=== PATIENT | female | born 1985 | race African-American/Black ===

== ENCOUNTER 2019-12-09 15:57 | Outpatient (CLI) | payer OTHER, SELFPAY ==
[2019-12-09] VITALS (8 sets, daily range): BP systolic 121–130; BP diastolic 75–82; PULSE 84–95
--- NOTE | ~2019-12-09 | US_ITS ---
EXAMINATION: US OB BPP wo non-stress DATE: 12/10/2019 09:00 INDICATION: -induced hypertension, third trimester TECHNIQUE: Real-time pelvic ultrasound was performed. The interpreting radiologist was not present fo r the study. COMPARISON: None. FINDINGS: There is a single living fetus in vertex presentation. The placenta is anterior. heart rate is 139 beats per minute (bpm). Biophysical profile performed by the technologist: breathing (30 sec sustained breathing in 30 minutes): 2 out of 2 movement (3 gross body movements in 30 minutes): 2 out of 2 tone (one episode of lrnharh-fdxvplhdb-vvzuchi limb movement): 2 out of 2 Amniotic fluid pocket (2 cm): 2 out of 2 Total score: 8 out of 8 IMPRESSION: 1. Single living fetus in vertex presentation. 2. Biophysical profile 8 out of 8. Reviewed, dictated and finalized at location A.
[2019-12-09 17:21] LABS: Basophils Percent Auto 0.3 % (0.2-1.2); Eosinophils Absolute Auto 0.1 K/mm3 (0-0.3); Eosinophils Percent Auto 0.7 % (0-4.4); Hematocrit 29.1 % (37.0-47.0); Immature Granulocyte Absolute 0.23 K/mm3 (0.00-0.031); Immature Granulocyte Percent A 3.1 % (0-0.5); Lymphocytes Absolute Auto 1.37 K/mm3 (0.9-3.2); Lymphocytes Percent Auto 18.6 % (18.3-44.2); Mean Corpuscular HGB Conc 30.9 g/dl (32-36); Mean Corpuscular Hemoglobin 24.1 pg (26-34); Mean Platelet Volume 10.8 fl (7.4-10.4); Monocytes Absolute Auto 0.8 K/mm3 (0.1-0.6); Monocytes Percent Auto 10.6 % (2.6-8.5); Neutrophils Absolute Auto 4.9 K/mm3 (1.3-6.7); Neutrophils Percent Auto 66.7 % (45.5-73.1); Platelet Count Result 181 k/mm3 (150-375); Red Blood Count 3.73 M/mm3 (4.2-5.4); White Blood Count 7.4 K/mm3 (4.5-10.0)
[2019-12-09 17:26] LABS: Add Urine Microscopic? YES; Appearance Urine Cloudy (Clear); Bacteria Urine 2+ /hpf; Bilirubin Urine 1+ (Negative); Blood Urine Negative (Negative); Color Urine Amber (Yellow); Glucose Urine UA 2+ mg/dL (Negative); Ketones Urine 1+ mg/dL (Negative); Leukocyte Esterase Ur Negative LEU/UL (NEGATIVE); Mucus Urine Heavy /lpf; Nitrate Urine Negative (Negative); Protein Urine 2+ mg/dL (Negative); Squamous Epithelial Cell Urine Many /hpf (Few)
[2019-12-09 17:29] LABS: Specific Grav Ur 1.033 (1.001-1.035)
[2019-12-09 17:33] LABS: Alanine Aminotransferase 8 U/L (4-35); Albumin Level 3.3 g/dL (3.5-5.1); Alkaline Phosphatase 139 U/L (38-126); Aspartate Amino Transferase 17 U/L (14-36); Bilirubin,Total 0.5 mg/dL (0.2-1.3); Blood Urea Nitrogen 4 mg/dL (7-17); Calcium 8.8 mg/dL (8.4-10.2); Carbon Dioxide 20 mmol/L (22-30); Chloride 108 mmol/L (98-107); Estimated Glomerular Filt Rate > 60; Glucose 105 mg/dL (65-105); Potassium 3.4 mmol/L (3.4-5.0); Sodium 133 mmol/L (137-145); Uric Acid 3.7 mg/dL (2.5-7.5)
[2019-12-09 17:58] LABS: Creatinine Urine 330.1 mg/dL; Total Protein Urine Random 12 mg/dL
--- NOTE | 2019-12-09 19:12 | PC.NURSE ---
Called Dr. Perdomo @[phone]- Informed of BPP 04/18, PIH labs reviewed, BP's reviewed. pt to continue to take Macrobid as previously prescribed. pt to increase fluid intake. pt to f/u in office at regularly scheduled appt.
== END 2019-12-09 19:09 | disposition home or self-care (01) ==
LOC: ANHOBOP 16:29 → ANHOBPP 16:33
PROVIDERS: Visit Provider Obstetrics & Gynecology
DX: O13.9 Gestational [pregnancy-induced] hypertension without significant proteinuria, unspecified trimester (principal)
CPT/HCPCS: 36415; 59025; 76819; 80053; 81001; 82570; 84156; 84550; 85025; 87086; 99199

== ENCOUNTER 2019-12-24 10:09 | Outpatient (RCR) | payer OTHER, SELFPAY ==
[2019-12-18 11:15] VITALS: BP 120/75; PULSE 89
--- NOTE | ~2019-12-24 | US_ITS ---
EXAMINATION: US OB BPP wo non-stress DATE: 12/18/2019 11:15 INDICATION: Hypertension. Third trimester. TECHNIQUE: Real-time pelvic ultrasound was performed. COMPARISON: Ultrasound 12/09/2019 FINDINGS: There is a single living fetus in vertex presentation. The placenta is anterior. heart rate is 134 beats per minute (bpm). Biophysical profile performed by the technologist: breathing (30 sec sustained breathing in 30 minutes): 2 out of 2 movement (3 gross body movements in 30 minutes): 2 out of 2 tone (one episode of mgzctpw-wxwlrqeyu-rqwtikd limb movement): 2 out of 2 Amniotic fluid pocket (2 cm): 2 out of 2 Total score: 8 out of 8 IMPRESSION: 1. Single living fetus in vertex presentation. 2. Biophysical profile 8 out of 8. Reviewed, dictated and finalized at location A.
[2019-12-24 10:48] VITALS: BP 123/77; PULSE 82
== END 2019-12-31 08:33 | disposition home or self-care (01) ==
LOC: ANHOBOP 10:09
PROVIDERS: Visit Provider Obstetrics & Gynecology
DX: O13.3 Gestational [pregnancy-induced] hypertension without significant proteinuria, third trimester (principal); Z3A.36 36 weeks gestation of pregnancy; Z3A.37 37 weeks gestation of pregnancy
CPT/HCPCS: 59025; 76819; A9270

== ENCOUNTER 2019-12-25 10:00 | Outpatient (CLI) | payer OTHER, SELFPAY ==
[2019-12-25] VITALS (7 sets, daily range): BP systolic 120–130; BP diastolic 73–83; PULSE 70–86; TEMP 36.7
[2019-12-25 10:41] LABS: Basophils Percent Auto 0.2 % (0.2-1.2); Eosinophils Absolute Auto 0.1 K/mm3 (0-0.3); Eosinophils Percent Auto 1.1 % (0-4.4); Hematocrit 31.1 % (37.0-47.0); Hemoglobin 9.7 g/dL (12.0-15.0); Immature Granulocyte Absolute 0.08 K/mm3 (0.00-0.031); Immature Granulocyte Percent A 1.4 % (0-0.5); Lymphocytes Percent Auto 23.5 % (18.3-44.2); Mean Corpuscular HGB Conc 31.2 g/dl (32-36); Mean Corpuscular Hemoglobin 24.9 pg (26-34); Mean Corpuscular Volume 79.7 fl (80-100); Mean Platelet Volume 11.8 fl (7.4-10.4); Monocytes Absolute Auto 0.6 K/mm3 (0.1-0.6); Monocytes Percent Auto 10.8 % (2.6-8.5); Neutrophils Absolute Auto 3.5 K/mm3 (1.3-6.7); Platelet Count Result 171 k/mm3 (150-375); Red Cell Distribution Width 21.5 % (11.5-14.5); White Blood Count 5.5 K/mm3 (4.5-10.0)
[2019-12-25 10:47] LABS: Add Urine Microscopic? YES; Appearance Urine Cloudy (Clear); Bacteria Urine Trace /hpf; Bilirubin Urine Negative (Negative); Blood Urine Negative (Negative); Color Urine Yellow (Yellow); Glucose Urine UA 1+ mg/dL (Negative); Ketones Urine Negative (Negative); Leukocyte Esterase Ur Negative LEU/UL (Negative); Mucus Urine Heavy /lpf; Nitrate Urine Negative (Negative); Protein Urine 1+ mg/dL (Negative); RBC Urine 0-2 /hpf (0-2); Specific Grav Ur 1.025 (1.001-1.035); Squamous Epithelial Cell Urine Many /hpf (Few); WBC Urine 0-3 /hpf
[2019-12-25 10:48] LABS: Total Protein Urine Random 25 mg/dL
[2019-12-25 11:27] LABS: Alanine Aminotransferase 9 U/L (4-35); Albumin Level 3.1 g/dL (3.5-5.1); Alkaline Phosphatase 141 U/L (38-126); Aspartate Amino Transferase 17 U/L (14-36); Bilirubin,Total 0.5 mg/dL (0.2-1.3); Blood Urea Nitrogen 4 mg/dL (7-17); Calcium 8.7 mg/dL (8.4-10.2); Carbon Dioxide 20 mmol/L (22-30); Chloride 108 mmol/L (98-107); Estimated Glomerular Filt Rate > 60; Glucose 96 mg/dL (65-105); Potassium 3.4 mmol/L (3.4-5.0); Sodium 134 mmol/L (137-145); Uric Acid 3.8 mg/dL (2.5-7.5)
--- NOTE | 2019-12-25 11:48 | PC.NURSE ---
Dr. Perdomo informed of lab results, BP's, and reactive NST. informed I had offered pt Tylenol, but pt states her headaches don't usually last very long and she doesn't normally take anything for them. Informed MD that pt's headache is still present. Order received to give Tylenol and then discharge pt to home. Pt is scheduled for induction on 12/31/19.
[2019-12-25] MEDS: ACETAMINOPHEN 500 MG TABLET 1000 MG PO (11:57)
== END 2019-12-25 12:05 | disposition home or self-care (01) ==
LOC: ANHOBOP 10:05 → ANHOBPP 10:12
PROVIDERS: Family Provider Obstetrics & Gynecology; Visit Provider Obstetrics & Gynecology
DX: O13.9 Gestational [pregnancy-induced] hypertension without significant proteinuria, unspecified trimester (principal); Z3A.00 Weeks of gestation of pregnancy not specified
CPT/HCPCS: 36415; 59025; 80053; 81001; 82570; 84156; 84550; 85025; 99199; A9270

== ENCOUNTER 2019-12-31 05:44 | Inpatient (IN) | payer OTHER, SELFPAY ==
[2019-12-31] VITALS (136 sets, daily range): BP systolic 88–140; BP diastolic 40–125; PULSE 51–111; RESP 18; TEMP 36.6–37.2; O2SAT 78–100; BMI 34.3
--- NOTE | 2019-12-31 06:17 | LDADM ---
This patient, Vanda Zaman, was admitted to Labor/Delivery/Recovery 104 on 12/31/19 at 05:44. Plans for labor, pain management and were discussed with patient. Patient/family oriented to hospital policies and general routines including ID bracelet, bed and alarms, visiting hours, pain management, procedures, bathroom and other care routines, personal items, smoking policy, room service/diet and guest tray routines, security routines, and visiting hours. Patient/Family are encouraged to report perceived risks to care and to ask questions if they do not understand what they are told or what they should do. See OBIX for further documentation.
[2019-12-31 06:35] LABS: Basophils Percent Auto 0.2 % (0.2-1.2); Eosinophils Percent Auto 0.7 % (0-4.4); Hematocrit 31.8 % (37.0-47.0); Hemoglobin 9.9 g/dL (12.0-15.0); Immature Granulocyte Percent A 1.7 % (0-0.5); Lymphocytes Absolute Auto 1.41 K/mm3 (0.9-3.2); Lymphocytes Percent Auto 24.5 % (18.3-44.2); Mean Corpuscular HGB Conc 31.1 g/dl (32-36); Mean Corpuscular Hemoglobin 24.8 pg (26-34); Mean Corpuscular Volume 79.5 fl (80-100); Mean Platelet Volume 11.2 fl (7.4-10.4); Monocytes Absolute Auto 0.6 K/mm3 (0.1-0.6); Monocytes Percent Auto 10.4 % (2.6-8.5); Neutrophils Absolute Auto 3.6 K/mm3 (1.3-6.7); Neutrophils Percent Auto 62.5 % (45.5-73.1); Platelet Count Result 203 k/mm3 (150-375); Red Cell Distribution Width 21.8 % (11.5-14.5); White Blood Count 5.8 K/mm3 (4.5-10.0)
[2019-12-31] MEDS: AMPICILLIN 2 GM/NS 100 ML 2 GM/100 ML BAG IVPB (06:40)
[2019-12-31] MEDS: OXYTOCIN 30 UNITS/NS 500 ML 30 UNITS/500 ML BAG 125 UNITS IV CONT ×3 (06:40→21:45)
[2019-12-31] MEDS: LACTATED RINGERS 1,000 ML 125 ML IV CONT ×4 (06:40→16:35)
[2019-12-31 06:50] LABS: Alanine Aminotransferase 9 U/L (4-35); Albumin Level 3.3 g/dL (3.5-5.1); Alkaline Phosphatase 161 U/L (38-126); Aspartate Amino Transferase 17 U/L (14-36); Bilirubin,Total 0.8 mg/dL (0.2-1.3); Blood Urea Nitrogen 4 mg/dL (7-17); Calcium 8.7 mg/dL (8.4-10.2); Carbon Dioxide 18 mmol/L (22-30); Chloride 108 mmol/L (98-107); Estimated CRCL calculation 117 ml/min; Estimated Glomerular Filt Rate > 60; Glucose 112 mg/dL (65-105); Potassium 3.2 mmol/L (3.4-5.0); Sodium 134 mmol/L (137-145); Uric Acid 4.2 mg/dL (2.5-7.5)
--- NOTE | 2019-12-31 07:09 | PM.IMHP ---
H&P: HPI History of Present Illness Chief complaint: Induction Narrative: Vanda Zaman is a 34 yo @ 38.2wks who presents to L&D for induction of labor due to chronic HTN. She has had documented elevated blood pressures since 2011. She was being seen at an [facility] and had been started on Adalat this , but it was then discontinued by her previous provider @ ~18wks due to hypotension. She has been undergoing routine testing with normal results. Repeat PEC labs have been WNL. She denies ALLISON, SOB, vision changes, CP, or RUQ pain. - She also has a +h/o HSV serology; no h/o outbreak-- has been intermittently been taking Acyclovir. - She is AMA and had normal genetic testing. - She had an abnormal glucola, but normal OGTT. - She is GBS positive. - She has mild chronic anemia; on iron supplementation. - She has heartburn on Pepcid. Review of Systems Constitutional: Constitutional: Denies chills and Denies fatigue Eyes: Eyes: Denies blurry vision Cardiovascular: Cardiovascular: Denies chest pain, Denies leg edema and Denies lightheadedness Respiratory: Respiratory: Denies cough and Denies dyspnea Gastrointestinal: Gastrointestinal: Denies abdominal pain, Denies nausea and Denies vomiting Genitourinary: Genitourinary: Denies vaginal discharge Neurologic: Denies headache(s) Psychiatric: Psychiatric: Denies anxiety and Denies depression [facility], [facility] Family History Family History Mother Hypertension Social History Social History Smoking status: Never smoker Substance use: never Spiritual care concerns: No Meds Home Medications and Allergies Home Medications Medication Instructions Recorded Confirmed Type famotidine 20 mg PO BID 12/25/19 12/31/19 History ferrous sulfate 325 mg PO BID 12/25/19 12/31/19 History valacyclovir [Valtrex] 500 mg PO BID 12/25/19 12/31/19 History Allergies Allergy/AdvReac Type Severity Reaction Status Date / Time No Known Allergies Allergy Verified 12/25/19 10:48 Vital Signs Vital Signs - 24 hr 12/31/19 07:01 Pulse Rate 85 Blood Pressure 114/82 Exam Const: General: no acute distress Resp: Effort & Inspection: normal respiratory effort Auscultation: clear to auscultation bilaterally Cardio: Rate: regular rate Rhythm: regular rhythm : Other: FHT's: 130's/ mod saritha/ + accels/ no decels - category 1 tracing [place]: ctx's q 10-15 min Cervix:10/31/-3 Membranes: intact Neuro: Cognition (Neuro): normal cognition Speech: normal speech Extrem: General: normal to inspection Psych: Mental Status: mental status grossly normal Affect: normal affect H&P: Results Labs Labs: Short CBC 12/31/19 Range/Units 06:27 WBC 5.8 (4.5-10.0) K/mm3 Hgb 9.9 L (12.0-15.0) g/dL Hct 31.8 L (37.0-47.0) % Plt Count 203 (150-375) k/mm3 BMP 12/31/19 06:28 Sodium 134 L Potassium 3.2 L Chloride 108 H Carbon Dioxide 18 L BUN 4 L Creatinine 0.60 L Glucose 112 H Calcium 8.7 Liver Function 12/31/19 Range/Units 06:28 Total Bilirubin 0.8 (0.2-1.3) mg/dL AST 17 (14-36) U/L ALT 9 (4-35) U/L Alkaline Phosphatase 161 H (38-126) U/L Albumin 3.3 L (3.5-5.1) g/dL Assessment and Plan Additional Plan 34yo @ 38.2wks admitted for induction of labor due to chronic hypertension - BP's WNL on admission; pt asymptomatic-- will continue to monitor closely. Repeat PEC labs normal this AM - Latent phase of labor; will start IOL w/ pitocin per protocol - FHT's reassuring; continuous monitoring - GBS ppx; will AROM after 4 hours of abx - Will continue acyclovir; no s/sx of current vaginal outbreak
[2019-12-31 10:10] LABS: Rapid Plasma Reagin Non-Reactive (NonReactive)
[2019-12-31] MEDS: AMPICILLIN 1 GM/NS 50 ML 1 GM/50 ML BAG IVPB ×2 (10:51→14:49)
--- NOTE | 2019-12-31 13:31 | WPDANESEPP ---
Anes - Eval Pre Procedure Procedure: Labor Epidural Date/Time: 12/31/19 13:31 Surgeon: Conor Preop Diagnosis: Labor Pain Pre Op Diagnosis: Induction Patient Data Age: 34 Gender: F Height: 5 ft 3 in Weight: 88 kg Last Vital Signs Temp 36.7 C 12/31/19 10:30 Pulse 88 12/31/19 13:28 BP 118/66 12/31/19 13:28 Pulse Ox 96 12/31/19 13:29 Allergies Allergy/AdvReac Type Severity Reaction Status Date / Time No Known Allergies Allergy Verified 12/25/19 10:48 Home Medications Medication Instructions Recorded Confirmed Type famotidine 20 mg PO BID 12/25/19 12/31/19 History ferrous sulfate 325 mg PO BID 12/25/19 12/31/19 History valacyclovir [Valtrex] 500 mg PO BID 12/25/19 12/31/19 History Laboratory Tests 12/31/19 12/31/19 12/31/19 06:27 06:27 06:27 WBC 5.8 K/mm3 K/mm3 (4.5-10.0) RBC 4.00 M/mm3 L M/mm3 (4.2-5.4) Hgb 9.9 g/dL L g/dL (12.0-15.0) Hct 31.8 % L % (37.0-47.0) MCV 79.5 fl L fl (80-100) MCH 24.8 pg L pg (26-34) MCHC 31.1 g/dl L g/dl (32-36) RDW 21.8 % H % (11.5-14.5) Plt Count 203 k/mm3 k/mm3 (150-375) MPV 11.2 fl H fl (7.4-10.4) Immature Gran % (Auto) 1.7 % H % (0-0.5) Neut % (Auto) 62.5 % % (45.5-73.1) Lymph % (Auto) 24.5 % % (18.3-44.2) [place] % (Auto) 10.4 % H % (2.6-8.5) Eos % (Auto) 0.7 % % (0-4.4) Baso % (Auto) 0.2 % % (0.2-1.2) Lymph # (Auto) 1.41 K/mm3 K/mm3 (0.9-3.2) [place] # (Auto) 0.6 K/mm3 K/mm3 (0.1-0.6) Eos # (Auto) 0.0 K/mm3 K/mm3 (0-0.3) Baso # (Auto) 0.0 K/mm3 K/mm3 (0.0-0.1) Abs Immat Gran (auto) 0.10 K/mm3 H K/mm3 (0.00-0.031) Absolute Neuts (auto) 3.6 K/mm3 K/mm3 (1.3-6.7) Absolute Nucleated RBC 0.0 K/mm3 K/mm3 (0.0-0.012) Nucleated RBC % 0.0 % % (0.0-0.2) Sodium Potassium Chloride Carbon Dioxide BUN Creatinine Estim Creat Clear Calc Estimated GFR Glucose Uric Acid Calcium Total Bilirubin AST ALT Alkaline Phosphatase Total Protein Albumin RPR Non-reactive (NonReactive) Blood Type A Positive Antibody Screen Negative 12/31/19 06:28 WBC RBC Hgb Hct MCV MCH MCHC RDW Plt Count MPV Immature Gran % (Auto) Neut % (Auto) Lymph % (Auto) [place] % (Auto) Eos % (Auto) Baso % (Auto) Lymph # (Auto) [place] # (Auto) Eos # (Auto) Baso # (Auto) Abs Immat Gran (auto) Absolute Neuts (auto) Absolute Nucleated RBC Nucleated RBC % Sodium 134 mmol/L L mmol/L (137-145) Potassium 3.2 mmol/L L mmol/L (3.4-5.0) Chloride 108 mmol/L H mmol/L (98-107) Carbon Dioxide 18 mmol/L L mmol/L (22-30) BUN 4 mg/dL L mg/dL (7-17) Creatinine 0.60 mg/dL L mg/dL (0.7-1.0) Estim Creat Clear Calc 117 ml/min ml/min Estimated GFR > 60 (59 - ) Glucose 112 mg/dL H mg/dL (65-105) Uric Acid 4.2 mg/dL mg/dL (2.5-7.5) Calcium 8.7 mg/dL mg/dL (8.4-10.2) Total Bilirubin 0.8 mg/dL mg/dL (0.2-1.3) AST 17 U/L U/L (14-36) ALT 9 U/L U/L (4-35) Alkaline Phosphatase 161 U/L H U/L (38-126) Total Protein 7.0 g/dL g/dL (6.3-8.2) Albumin 3.3 g/dL L g/dL (3.5-5.1) RPR Blood Type Antibody Screen Patient hx anesthesia problems: none Family hx anesthesia problems: none PMFSH Family History Family History Mother Hypertension Social History Social History (Reviewed 12/31/19 @
--- NOTE | 2019-12-31 16:22 | P.PNOB_ITS ---
Pain Control Date/time seen: 12/31/19 16:22 S: No complaints, comfortable. No ALLISON, vision changes, CP, SOB. O: VSS FHT: 130's/ mod saritha/ + accels/ occasional mild variable decel -- overall reassuring, category 2 [place]: ctx's q3min (~35-40mVu) Labor Curve AROM, clear @ 1215 6/70/-2 @ 1400 6/100/-2 @ 1600, IUPC placed, pitocin @ 14mU A/P: Active labor; protracted - IUPC placed on this exam - Will place peanut ball - No caput or cervical swelling; FHT reassuring - Continue pitocin per protoco
[2019-12-31] MEDS: ONDANSETRON INJ 4 MG/2 ML VIAL IV PUSH (16:35)
--- NOTE | 2019-12-31 19:08 | P.PCNOB_ITS ---
OB - Delivery Note Procedure Delivery date: 12/31/19 Procedure: Patient progressed to complete dilation and with good maternal effort delivered the head over intact perineum. No nuchal cord was palpated, the shoulders and body delivered easily without complications. The mouth and nose were bulb suction. The had spontaneous cry and was placed skin to skin. The cord was then clamped and cut. A segment of the cord was collected for cord gases. The remaining cord blood was sent for typing. With gentle traction and Pitocin running the placenta was delivered without complications. Minimal bleeding was noted and the fundus was firm to palpation. The cervix, vagina, and perineum were inspected and no lacerations were noted. Sponge, lap, needle, and instrument counts were correct at the end of the procedure. Mom and baby were left bonding in the birthing suite in a stable condition. events: Labor Induction (for Chronic hypertension) Intrapartal events: Prolonged Active Phase Induction method: per pitocin protocol Delivery augmentation: rupture of membranes Delivery monitor: external FHT and internal uterine Route of delivery: Laceration description: None Specimen: Yes Estimated blood loss (mL): 150 Anesthesia type: Epidural Disposition: floor [place] Baby Date of : 12/31/19 Time of : 18:56 Weeks of gestation at delivery: 38 Infant gender: Male Weight (pounds): 6 Weight (ounces): 7 presentation: vertex cord vessel description: 3 Vessels score one minute: 9 score five minutes: 9
[2019-12-31] MEDS: MISOPROSTOL 200 MCG TABLET 800 MCG RECTAL (23:54)
--- NOTE | 2020-01-01 00:03 | PC.NURSE ---
Patient arrived to unit via wheelchair at 2145. Assisted to bed via labor nurses. Oriented to room, admission packet, call light within reach. Usha GR
[2020-01-01] MEDS: OXYTOCIN 30 UNITS/NS 500 ML 30 UNITS/500 ML BAG 125 UNITS IV CONT (00:07)
--- NOTE | 2020-01-01 00:14 | PC.NURSE ---
When I went to stop the bag of pitocin and hang a new bag there was actually only 300cc's that infused in the bag, the previous nurse had manually charted 500cc's but on the pump from when the patient was brought upstairs, it said 300cc's left to infuse and that is what infused during the time she was up on the second floor. I hung a new bag of pitocin, per MD orders, at 125cc's an hour.
[2020-01-01 05:12] LABS: Hematocrit 29.9 % (37.0-47.0); Hemoglobin 9.3 g/dL (12.0-15.0)
[2020-01-01 08:05] VITALS: BP 129/54; PULSE 81; RESP 18; TEMP 36.8; O2SAT 99
[2020-01-01] MEDS: MULTIVIT/MIN/PREN/FOL AC/IRON TABLET 1 TAB PO (08:21)
[2020-01-01] MEDS: IBUPROFEN 600 MG TABLET PO ×2 (08:21→16:12)
[2020-01-01] MEDS: POLYSACCHARIDE IRON COMPLEX 150 MG CAPSULE PO ×2 (08:21→16:12)
[2020-01-01] MEDS: DOCUSATE SODIUM 100 MG CAPSULE PO ×2 (08:21→16:12)
--- NOTE | 2020-01-01 13:50 | PM.OBPNVD ---
OB - PN: Subj Subjective Date/time seen: 01/01/20 13:50 Vanda is a 34yo now [id number] s/p @ 38.2wks. Induction for chronic HTN. Delivery complicated by PPH of 1000cc secondary to atony from urinary retention (However, EBL more likely 500cc based on drop in H/H). She denies any issues today. She is ambulating w/o symptoms of anemia. She is tolerating regular diet w/o N/V. +flatus, no BM yet. Voiding without difficulty. Pain is controlled. Her bleeding is minimal today. She denies any ALLISON, CP, SOB, fever, chills. Will is doing well at breast feeding and she would like for him to get a circumcision today. OB - PN: Obj Data Labs CBC & Chem 7: 01/01/20 04:54 12/31/19 06:28 Labs: Laboratory Results - last 24 hr 01/01/20 04:54 Hgb 9.3 L Hct 29.9 L OB - PN A/P Assessment and Plan (1) hemorrhage: Qualifiers: hemorrhage type: other immediate Qualified Code(s): O72.1 - Other immediate hemorrhage Code(s): O72.1 - Other immediate hemorrhage Status: Acute (2) Normal vaginal delivery: Code(s): O80 - Encounter for full-term uncomplicated delivery Status: Acute (3) Chronic hypertension affecting : Code(s): O10.919 - Unspecified pre-existing hypertension complicating , unspecified trimester Status: Acute Plan day: 1 Plan: routine care Comments: - meeting all milestones - BP's WNL; pt asymptomatic -- pt to f/u in 1 week for BP check - H/H with drop of 0.6; more consistent with EBL of 500cc; pt asymptomatic -- iron daily - Continue breast feeding - Her son is s/p circumcision - Pelvic rest, pain/bleeding/fever/HTN ER return precautions reviewed - Pt to be discharged home tomorrow Time Spent With Patient Time: Total time spent is greater than 50% in coordination of care (as documented) at patient's floor/unit and/or counseling patient: Review of Systems Review of Systems: All systems reviewed & are unremarkable except as noted in HPI and below Constitutional: Constitutional: Denies chills, Denies fatigue and Denies headache(s) Cardiovascular: Cardiovascular: Denies rapid heart rate Respiratory: Respiratory: Denies cough and Denies dyspnea Gastrointestinal: Gastrointestinal: Denies abdominal pain, Reports constipation, Denies nausea and Denies vomiting Genitourinary: Genitourinary: Reports as per HPI Neurologic: Denies headache(s) Exam Const: General: comfortable, no acute distress, alert and awake Resp: Effort & Inspection: normal respiratory effort Auscultation: clear to auscultation bilaterally Cardio: Rate: regular rate GI: Auscultation: normal bowel sounds Other: soft, non-distended. : Other: Fundus firm at umbilicus Psych: Appearance: grossly normal Affect: normal affect Attitude: cooperative
--- NOTE | 2020-01-01 13:56 | WPDANLDPN2 ---
Anes-Prog Note L&D Date/Time: 01/01/20 13:56 Comfortable throughout: labor and delivery Neuraxial method: epidural Epidural/Spinal procedure site: clean & non-tender Neuro status: Neuro function grossly intact. Cardiovascular status: normal Respiratory status: normal Airway patency: baseline Post-Op hydration status: normal Vital Signs: Last Vital Signs Temp 36.8 C 01/01/20 08:05 Pulse 81 01/01/20 08:05 Resp 18 01/01/20 08:05 BP 129/54 L 01/01/20 08:05 Pulse Ox 99 01/01/20 08:05 I/O: Intake & Output 12/31/19 01/01/20 01/01/20 23:59 07:59 15:59 Intake Total 2000 1000 Output Total 650 600 Balance 1350 400 Post-procedural complaints: none Patient feedback: Patient satisfied with anesthetic care.
[2020-01-01] MEDS: FAMOTIDINE 20 MG TABLET PO (16:11)
[2020-01-01 19:45] VITALS: BP 131/80; PULSE 68; RESP 12; TEMP 36.6
[2020-01-02 07:40] VITALS: BP 122/53; PULSE 70; RESP 18; TEMP 37.2; O2SAT 99
[2020-01-02] MEDS: FAMOTIDINE 20 MG TABLET PO (09:09)
[2020-01-02] MEDS: DOCUSATE SODIUM 100 MG CAPSULE PO (09:10)
[2020-01-02] MEDS: MULTIVIT/MIN/PREN/FOL AC/IRON TABLET 1 TAB PO (09:10)
[2020-01-02] MEDS: IBUPROFEN 600 MG TABLET PO (09:10)
[2020-01-02] MEDS: POLYSACCHARIDE IRON COMPLEX 150 MG CAPSULE PO (09:10)
[2020-01-02] MEDS: TETANUS,DIPHTHERIA,AC PERTUSSIS ADULT (0.5 ML) BOOSTRIX IM (09:12)
[2020-01-03 14:17] VITALS: BP 123/64; PULSE 78; RESP 20; TEMP 37.1; O2SAT 99
--- NOTE | 2020-01-09 15:44 | PM.DS ---
DS: Diagnosis Admitting Diagnosis Admitting Diagnosis: Encounter for supervision of normal , unspecified, third trimester Discharge Diagnosis (1) Chronic hypertension affecting : Code(s): O10.919 - Unspecified pre-existing hypertension complicating , unspecified trimester Status: Acute DS: Summary Hospital Course Hospital Course: Vanda is a 34yo who was admitted at 38.2 for induction of labor due to chronic hypertension affecting . PEC labs on admission that were WNL and she was asymptomatic and normotensive. Her induction was started with pitocin and AROM (after adequate GBS ppx). She had an uncomplicated delivery. She had a PPH a couple hours after delivery due to atony from urinary retention. Her H/H was stable and when she was meeting all milestones, she was discharged home in a stable condition on PPD#1 Status at Discharge Functional status at discharge: independent ambulation Overall status at discharge: patient is back to baseline Time Spent with Patient Time attestation: Total time spent providing and/or coordinating discharge services: Exam Const: General: no acute distress Resp: Effort & Inspection: normal respiratory effort Auscultation: clear to auscultation bilaterally Cardio: Rate: regular rate Rhythm: regular rhythm GI: Inspection: non-distended GI Palp: Yes Soft to palpation Auscultation: normal bowel sounds Other: fundus firm at umbilicus : Speculum Exam - Vagina: vaginal bleeding (normal lochia) Skin: General skin exam: normal color Neuro: General: gait normal Extrem: General: normal to inspection Psych: Mental Status: mental status grossly normal DS: Data Data Completed and Pending Completed studies during hospitalization: Pending at discharge 12/31/19 18:59 Surgical [PTH] Routine Discharge Plan Discharge Attending physician on discharge: Rhoda Perdomo Discharging Clinician: Rhoda Perdomo Anticipated Discharge Date/Time: 01/02/20 11:00 Patient Disposition: Home, Self-Care Activity: pelvic rest Diet: regular Discharge Instructions: Education: Mom and Baby Guide Given to: Mother Follow-Up: Call your delivering provider's office for an appointment to be seen in: 1 week for blood pressure check and 4-5 Weeks for exam Mom and baby should come to the [facility] for the follow-up appointment. Appointment Date/Time: January 03, 2020 at 11:00 am What to expect at your follow-up visit: Blood Pressure Check Physical Assessment Call [phone] if you are unable to keep your appointment time. BREAST CARE: 1. Wear a snug supportive bra. 2. For engorgement discomfort: Breast Feeding: A. Apply warm moist washcloths B. Express milk as needed to relieve engorgement C. Wear loose clothing 3. For sore nipples: A. Identify correct latch-on B. Apply warm moist washcloths before and after nursing C. Air dry nipples after nursing D. May apply Lansinoh cream to nipples PERINEAL CARE: 1. Until bleeding stops, use your stephanie bottle after urinating 2. Change your pad frequently throughout the day 3. You may take sitz baths several times a day (fill your bathtub with warm water and soak for 20 minutes.) Do NOT bathe in the water 4. No tub baths until seen by your physician - You may shower ACTIVITY: 1. Rest as much as possible. 2. Do not exercise or lift anything heavier than your baby (such as laundry or other children.) 3. Avoid stairs or driving as much as possible for 2 weeks. 4. Do not put anything into the vagina. No douching, tampons, or sexual activity until seen by physician. NOTIFY PHYSICIAN IF YOU HAVE ANY QUESTIONS OR IF ANY OF THE FOLLOWING SYMPTOMS OCCUR: 1. If your perineum becomes red, swollen, or more painful than what you have experienced in the hospital. 2. If your va
== END 2020-01-02 11:52 | disposition home or self-care (01) | DRG 560 ==
LOC: ANHLDR 05:50 → ANHOB2 01-01 14:02 → ANHLDR 01-03 08:39 → ANHOB2 01-03 08:39
PROVIDERS: Admitting Provider Obstetrics & Gynecology; Visit Provider Obstetrics & Gynecology
DX: O10.92 Unspecified pre-existing hypertension complicating childbirth (principal); Z37.0 Single live birth; Z3A.38 38 weeks gestation of pregnancy; O99.824 Streptococcus B carrier state complicating childbirth; O99.02 Anemia complicating childbirth; D64.9 Anemia, unspecified; O63.9 Long labor, unspecified; O36.8330 Maternal care for abnormalities of the fetal heart rate or rhythm, third trimester, not applicable or unspecified; O72.1 Other immediate postpartum hemorrhage; R33.9 Retention of urine, unspecified; O98.52 Other viral diseases complicating childbirth; B00.9 Herpesviral infection, unspecified
CPT/HCPCS: 36415; 80053; 84550; 85014; 85018; 85025; 86592; 86850; 86900; 86901; 88307; 90715; A9270; J0290; J2405; J2590; J2795; J7120

== ENCOUNTER 2020-02-25 00:22 | Outpatient (CLI) | payer OTHER, SELFPAY ==
[2020-02-25 18:12] LABS: SARS-CoV-2 RNA PCR Negative
== END 2020-02-25 00:23 | disposition home or self-care (01) ==
LOC: ANHCOVIDDT 00:22
PROVIDERS: Visit Provider Obstetrics & Gynecology
DX: Z01.812 Encounter for preprocedural laboratory examination (principal); Z20.828 Contact with and (suspected) exposure to other viral communicable diseases
CPT/HCPCS: 87635; C9803; U0003

== ENCOUNTER 2020-02-25 08:14 | Outpatient (CLI) | payer OTHER, SELFPAY ==
--- NOTE | 2020-02-25 08:17 | ECG_ITS ---
Measurements Intervals [place] Rate: 69 P: 44 KS: 144 QRS: -9 QRSD: 117 T: -5 QT: 388 QTc: 417 Interpretive Statements SINUS RHYTHM VOLTAGE CRITERIA FOR LVH DELAYED PRECORDIAL R/S TRANSITION BORDERLINE T WAVE ABNORMALITY- ANT/INF LEADS BASELINE ARTIFACT- I ,II, III, AVR, AVL, AVF BORDERLINE ECG Electronically Signed On 02-25-2020 10:31:43 CDT by Mathew Tijerina D.O.
== END 2020-02-25 08:15 | disposition home or self-care (01) ==
LOC: ANHSURGERY 08:17
PROVIDERS: Visit Provider Obstetrics & Gynecology
DX: I10 Essential (primary) hypertension (principal)
CPT/HCPCS: 93005

== ENCOUNTER 2020-02-27 00:53 | Day surgery (SDC) | payer OTHER, SELFPAY ==
[2020-02-14 16:03] VITALS: BMI 29.8
[2020-02-27] VITALS (9 sets, daily range): BP systolic 144–173; BP diastolic 83–102; PULSE 64–90; RESP 14–24; TEMP 36.1–36.6; O2SAT 93–100
--- NOTE | 2020-02-27 06:20 | SUR.PREOP ---
0620- PT HAS NOT ARRIVED FOR SURGERY AT 0600. CALLED PHONE NUMBER AND PT STATED SHE WAS TOLD HER TIME WAS 0730. EXPLAINED HER SURGERY IS SCHEDULED FOR 0730, NEEDED TO BE HERE AT 0600. PT STATED SHE CAN LEAVE HER HOUSE NOW IN [place]. WILL BE HERE IN 20-30 MINS.
--- NOTE | 2020-02-27 07:07 | P.HP_ITS ---
H&P: HPI History of Present Illness Chief complaint: Desires Sterilization Narrative: Vanda Zaman is a 34yo P4034 who is s/p on 12/31/19 complicated by hemorrhage and readmission for pre- eclampsia. She presents today for sterilization as she no longer desires future fertility, she has four healthy children. [facility] sterilization form signed on 12/23/19. She denies any issues or questions today and desires to proceed with planned surgery. Review of Systems Constitutional: Constitutional: Denies body ache(s) and Denies fatigue Eyes: Eyes: Denies blurry vision Cardiovascular: Cardiovascular: Denies chest pain and Denies palpitations Respiratory: Respiratory: Reports cough and Denies dyspnea Gastrointestinal: Gastrointestinal: Denies abdominal pain, Denies nausea and Denies vomiting Genitourinary: Genitourinary: Denies dysuria, Denies pelvic pain and Denies vaginal discharge Neurologic: Denies headache(s) Psychiatric: Psychiatric: Reports no additional psychiatric complaints [facility] Family History Family History Mother Hypertension Social History Social History Smoking status: Never smoker Substance use: never Spiritual care concerns: No Meds Home Medications and Allergies Home Medications Medication Instructions Recorded Confirmed Type albuterol sulfate 1 puff INHALATION DIRECTED PRN 02/14/20 02/14/20 History hydralazine 10 mg PO TID 02/14/20 02/14/20 History Allergies Allergy/AdvReac Type Severity Reaction Status Date / Time No Known Allergies Allergy Verified 02/14/20 15:53 Exam 2 Const: General: comfortable and no acute distress Resp: Effort & Inspection: normal respiratory effort Auscultation: clear to auscultation bilaterally Cardio: Rate: regular rate Rhythm: regular rhythm GI: Inspection: non-distended GI Palp: Yes Soft to palpation and No Tenderness to palpation present (GI) Other: no prior incisions/scars Skin: General skin exam: normal color Neuro: Cognition (Neuro): normal cognition Extrem: General: normal to inspection Psych: Mental Status: mental status grossly normal Assessment and Plan Assessment and plan (1) Encounter for female sterilization procedure: Code(s): Z30.2 - Encounter for sterilization Status: Acute Additional Plan - Patient no longer desires future fertility and desires permanent sterilization - Patient was counseled on all contraceptive options including pills, shot, patch, vaginal ring, IUD, arm implant, and vasectomy for her partner. - She was counseled on the risks and benefits of the procedure - Plan to proceed with laparoscopic bilateral tubal ligation
[2020-02-27] MEDS: LACTATED RINGERS 1,000 ML 30 ML IV CONT ×2 (07:16→08:34)
--- NOTE | 2020-02-27 07:18 | P.PNAN_ITS ---
Anes - Initial Pre Proc Eval Procedure: Operation Date: 02/27/20 07:30 Proposed Procedures p Laparoscopic Bilateral Tubal Ligation With Cautery - Rhoda Perdomo MD Date/Time: 02/27/20 07:18 Surgeon: Rhoda Perdomo MD Pre Op Diagnosis: Desires Sterilization Patient Data Age: 34 Gender: F Height: 5 ft 4 in Weight: 78.93 kg Allergies Allergy/AdvReac Type Severity Reaction Status Date / Time No Known Allergies Allergy Verified 02/14/20 15:53 Home Medications Medication Instructions Recorded Confirmed Type albuterol sulfate 1 puff INHALATION DIRECTED PRN 02/14/20 02/14/20 History hydralazine 10 mg PO TID 02/14/20 02/14/20 History docusate sodium [Colace] 100 mg PO BID #20 cap 02/27/20 Rx ibuprofen 800 mg PO TID PRN #30 tablet 02/27/20 Rx oxycodone-acetaminophen [Percocet] 1 tablet PO Q6H PRN 3 Days #10 02/27/20 Rx tablet Patient hx anesthesia problems: none Family hx anesthesia problems: none [facility] Past Medical History Medical History (Updated 02/27/20 @ 07:18 by Conor Hernandez MD) Asthma HTN (hypertension) Family History Family History Mother Hypertension Social History Social History Smoking status: Never smoker Substance use: never Spiritual care concerns: No Anes - Eval Final PreProcedure Day of Procedure 02/27/20 07:18 Patient weight: obese Heart: regular rate and rhythm Lungs: clear to auscultation Airway: Mallampati scale class 1 Neurological: alert and oriented Last oral intake: >/= 8 hours ASA classification: II Emergent: no Anesthetic plan: proceed Anesthesia type and monitoring: general ETT and standard monitoring Informed Consent: The patient's anesthetic plan and its attendant risks and benefits were discussed with the patient/family/POA. Questions were solicited and answers provided to the satisfaction of the patient/family/POA.
[2020-02-27] MEDS: KETOROLAC 30 MG/ML VIAL (*BKC) IV PUSH (07:43)
--- NOTE | 2020-02-27 08:34 | PM.PROC ---
Procedure Note - Detailed Date of procedure: 02/27/20 Pre-op diagnosis: Desires Sterilization Post-op diagnosis: same Procedure performed: Laparoscopic bilateral tubal ligation Description of procedure: Patient was taken operating room where she was placed under general anesthesia without complications. She was then positioned in the dorsal lithotomy position with both arms tucked at her side. She was then prepped and draped in the normal sterile fashion. A Winkler catheter was placed within the bladder under aseptic techniques. No antibiotics were indicated and a time-out was performed. A bivalve speculum was then placed within the vagina and the anterior lip of the cervix was grasped with a single-tooth tenaculum. The uterus was sounded to 10 cm and a Zumi uterine manipulator was placed and the balloon was inflated. My gloves were changed and attention was turned to the abdomen. 0.25% Marcaine was injected in the umbilicus. Allis clamps were used to elevate the umbilicus and a 5 mm incision was made using the scalpel. A 5 mm trocar was then placed under direct visualization. Once intra-abdominal placement was confirmed the abdomen was insufflated with carbon dioxide gas. Two additional 5 mm ports were placed under direct visualization in the right and left lower quadrants. The uterus was anteverted and the above findings were noted. Using the LigaSure the left fallopian tube was grasped, clamped, coagulated twice, and transected. Approximately 2-3 cm further down the left tube the same procedure was performed. The small segment of the fallopian tube was then removed and good hemostasis was noted. The same procedure was then performed on the right fallopian tube. Both segments were removed from the abdomen and sent to pathology. The pelvis was once again inspected and good hemostasis was noted. All instruments were removed from the abdomen. The insufflation was released and the trocars were removed. The laparoscopic port sites were then closed using a single stitch of 4 0 Vicryl and Repka were covered with Dermabond. The remaining 7 cc of local anesthesia were used at each port site. The Winkler catheter and Zumi uterine manipulator were removed. The patient tolerated the procedure well and was woken from general anesthesia and taken to recovery in a stable condition. Sponge, lap, instrument, and needle counts were correct at the end of the procedure. Anesthesia: GETA Surgeon: Rhoda Perdomo MD Estimated blood loss (mL): 10 Urine output (mL): 150 Drains: No Packing: No Pathology: yes Complications: No immediate complications Condition: stable Disposition: PACU Findings: Normal multiparous cervix. Normal uterus; ~8-10wk size. Normal tubes and ovaries bilaterally. Good hemostasis at end of case.
--- NOTE | 2020-02-27 09:52 | SUR.PHASEII ---
0950: Dr. Perdomo notified about the one site bulging and having some hardness around it. She said she will be down in 15-20 minutes to look at it.
--- NOTE | 2020-02-27 10:20 | SUR.PHASEII ---
1015: Pressure dressing applied to right lap site by Dr. Perdomo.
== END 2020-02-27 10:42 | disposition home or self-care (01) ==
PROVIDERS: Visit Provider Obstetrics & Gynecology
PROC: (CPT 58671; principal; 2020-02-27 07:30)
DX: Z30.2 Encounter for sterilization (principal); I10 Essential (primary) hypertension; J45.909 Unspecified asthma, uncomplicated; E66.9 Obesity, unspecified; Z68.29 Body mass index [BMI] 29.0-29.9, adult
CPT/HCPCS: 58661; 88302; A9270; J0330; J1100; J1885; J2250; J2405; J2704; J3010; J7030; J7120